=== PATIENT | male | born 1990 | race Caucasian/White ===

== ENCOUNTER 2017-06-23 11:47 | Emergency (ER) | payer SELFPAY ==
[~2017-06-23] VITALS: Ht 170.1 cm; Wt 59.0 kg
[~2017-06-23 11:47] MED LIST: CLINDAMYCIN HC300 MG PO; CLINDAMYCIN300 MG PO; HYDROCODONE BIT1 T11 PO; HYDROCODONE BIT1 TAB PO; IBUPROFEN400 MG PO; MOTRIN400 MG PO; MOTRIN800 MG PO; NAPROSYN250 MG PO; NAPROSYN500 MG PO; NKHM PO; NORCO 325 MG-51 TAB PO; NORFLEX100 MG PO; TRIMOX500 MG PO; TYLENOL W/CODEI1 TA2 PO
== END 2017-06-23 12:04 | disposition home or self-care (01) ==
LOC: ED 11:47
DX: Z00.8 Encounter for other general examination (principal)

== ENCOUNTER 2021-06-23 11:22 | Emergency (ER) | payer OTHER ==
[~2021-06-23] VITALS: Wt 56.7 kg
[2021-06-23 12:03] LABS: BASO % 0.4 % (0.0-1.0); EOS # 0.1 10*3/uL (0.0-0.4); EOS % 1.3 % (1.0-4.0); HEMATOCRIT 39.8 % (42.0-52.0); LYMPH # 3.6 10*3/uL (1.3-4.4); LYMPH % 37.9 % (27.0-41.0); MEAN CELL VOLUME 89.6 fl (80.0-94.0); MEAN CORPUSCULAR HGB 30.9 pg (27.0-31.0); MEAN CORPUSCULAR HGB CONC 34.4 g/dl (33.0-37.0); MEAN PLATELET VOLUME 9.6 fl (9.6-12.3); MONO # 0.9 10*3/uL (0.1-1.0); MONO % 9.7 % (3.0-9.0); NEUT # 4.8 10*3/uL (2.3-7.9); NEUT % 50.5 % (47.0-73.0); PLATELET COUNT AUTOMATED 212 10*3/uL (130-400); RED BLOOD COUNT 4.44 10*6/uL (4.50-5.90); WHITE BLOOD COUNT 9.5 10*3/uL (4.8-10.8)
[2021-06-23 12:15] LABS: BUN 14 mg/dl (7-24); CHLORIDE 109 mmol/L (98-107); CREATININE 0.74 mg/dL (0.70-1.30); POTASSIUM 3.1 mmol/L (3.5-5.1); SODIUM 143 mmol/L (136-145)
[2021-06-23] MEDS ORDERED: POTASSIUM CHLO20 ME3 PO (13:15)
== END 2021-06-23 13:32 | disposition home or self-care (01) ==
LOC: ED 11:22
PROVIDERS: Emergency Medicine
DX: R53.83 Other fatigue (principal); E87.6 Hypokalemia; F17.210 Nicotine dependence, cigarettes, uncomplicated

== ENCOUNTER 2023-08-28 13:15 | Emergency (ER) | payer OTHER ==
[~2023-08-28] VITALS: Ht 170.1 cm; Wt 60.3 kg
[~2023-08-28 13:15] MED LIST changes: +POTASSIUM CHLO20 ME3 PO
[2023-08-28 13:18] VITALS: BP 124/80
[2023-08-28 13:40] LABS: HEMATOCRIT 48.9 % (42.0-52.0); MEAN CELL VOLUME 100.2 fl (80.0-94.0); MEAN CORPUSCULAR HGB 31.4 pg (27.0-31.0); MEAN CORPUSCULAR HGB CONC 31.3 g/dl (33.0-37.0); MEAN PLATELET VOLUME 9.9 fl (9.6-12.3); PLATELET COUNT AUTOMATED 292 10*3/uL (130-400); RED BLOOD COUNT 4.88 10*6/uL (4.50-5.90); RED CELL DISTRI WIDTH 12.3 % (0-14.5); WHITE BLOOD COUNT 33.6 10*3/uL (4.8-10.8)
[2023-08-28 13:43] LABS: MANUAL DIFF REFLEX YES
[2023-08-28 14:00] LABS: BURR CELLS MODERATE; PLATELET SUFFICIENCY NORMAL (NORMAL); TOTAL CELLS COUNTED 100 #CELLS
[2023-08-28 14:01] LABS: ALKALINE PHOSPHATASE 117 U/L (46-116); BUN 14 mg/dl (9-23); CHLORIDE 102 mmol/L (98-107); CPK 299 U/L (34-171); POTASSIUM 4.2 mmol/L (3.4-5.1); SGPT/ALT 21 U/L (5-49); TOTAL PROTEIN 7.3 gm/dL (6.0-8.0)
[2023-08-28 14:02] LABS: ETHYL ALCOHOL < 3.0 mg/dl (<3)
[2023-08-28] MEDS ORDERED: Lactated Ringer's Solution 500 ML BAG IV ONE (14:20)
[2023-08-28] MEDS ORDERED: Lactated Ringer's Solution 1,000 ML BAG IV ONE (14:25)
[2023-08-28 14:40] LABS: BILIRUBIN Negative (Negative); BLOOD 3+ (Negative); CLARITY Cloudy (Clear); COLOR Yellow (Yellow); GLUCOSE Negative (Negative); KETONE Negative (Negative); LEUKO ESTERASE Negative (Negative); NITRITE Negative (Negative); PH 5.5 (4.5-8.0); SPECIFIC GRAVITY 1.015 (1.001-1.030)
[2023-08-28 14:53] LABS: MUCOUS 1+; WBC 41-50 wbc/hpf (0-5)
[2023-08-28 14:54] LABS: URINE AMPHETAMINES Negative (1000ng/ml); URINE BARBITURATES Negative (200ng/ml); URINE BENZODIAZEPINES Negative (200ng/ml); URINE CANNABINOIDS (THC) Positive (50ng/ml); URINE COCAINE Negative (300ng/ml); URINE METHADONE Negative (300ng/ml); URINE OPIATES Negative (300ng/ml); URINE PHENCYCLIDINE Negative (25ng/ml)
[2023-08-28 14:57] VITALS: BP 98/65
[2023-08-28] MEDS ORDERED: Lactated Ringer's Solution 1,000 ML IV SCH (15:50)
[2023-08-28 16:00] VITALS: BP 107/70
[2023-08-28 17:10] VITALS: BP 104/64
[2023-08-28] MEDS ORDERED: HEPARIN SODIUM 250 ML IV SCH (17:45)
[2023-08-28] MEDS ORDERED: SODIUM CHLORIDE 0.9% 100 ML BAG IV ONE (18:10)
[2023-08-28] MEDS ORDERED: IOHEXOL 350 MG/ML 100 ML VIAL IV ONE (18:10)
[2023-08-28] MEDS ORDERED: ASPIRIN, CHEWABLE 81 MG TAB PO ONE (18:15)
[2023-08-28 19:39] VITALS: BP 151/42
[2023-08-28 21:43] VITALS: BP 109/73
[2023-08-29] VITALS: BP 132/89
[2023-08-29] MEDS ORDERED: Nicotine 7 MG PATCH T ONE (00:20)
[2023-08-29 03:53] VITALS: BP 100/65
[2023-08-29 06:18] VITALS: BP 102/63
[2023-08-29 07:29] VITALS: BP 105/62
[2023-08-29 08:06] LABS: ALKALINE PHOSPHATASE 62 U/L (46-116); BUN 11 mg/dl (9-23); CHLORIDE 103 mmol/L (98-107); HEMATOCRIT 40.8 % (42.0-52.0); MEAN CORPUSCULAR HGB 31.6 pg (27.0-31.0); MEAN CORPUSCULAR HGB CONC 34.1 g/dl (33.0-37.0); MEAN PLATELET VOLUME 11.2 fl (9.6-12.3); PLATELET COUNT AUTOMATED 220 10*3/uL (130-400); POTASSIUM 3.8 mmol/L (3.4-5.1); RED CELL DISTRI WIDTH 12.7 % (0-14.5); SGPT/ALT 83 U/L (5-49); WHITE BLOOD COUNT 21.3 10*3/uL (4.8-10.8)
[2023-08-29 08:07] LABS: MANUAL DIFF REFLEX YES; MEAN CELL VOLUME 92.7 fl (80.0-94.0)
[2023-08-29 08:37] LABS: BASOPHILS 1 % (0-1); BURR CELLS FEW; POLYCHROMASIA SLIGHT; TOTAL CELLS COUNTED 100 #CELLS
[2023-08-29 08:38] LABS: PLATELET SUFFICIENCY NORMAL (NORMAL)
[2023-08-29 10:02] VITALS: BP 107/63
[2023-08-29] MEDS ORDERED: Nicotine 21 MG PATCH T ONE (10:55)
[2023-08-29 12:35] VITALS: BP 102/64
== END 2023-08-29 15:40 | disposition short-term general hospital (02) ==
LOC: ED 13:15 → EDHOLD 17:20 → ED 17:20
PROVIDERS: Emergency Medicine
DX: I21.4 Non-ST elevation (NSTEMI) myocardial infarction (principal); R55 Syncope and collapse; D72.829 Elevated white blood cell count, unspecified; R79.89 Other specified abnormal findings of blood chemistry; R00.0 Tachycardia, unspecified; F17.200 Nicotine dependence, unspecified, uncomplicated